=== PATIENT | female | born 1990 | race African-American/Black ===

== ENCOUNTER 2023-10-08 18:20 | Emergency (ER) | payer OTHER ==
[~2023-10-08] VITALS: Ht 170.2 cm; Wt 91.0 kg
[2023-10-08 18:24] VITALS: BP 141/76; PULSE 104; RESP 18; O2SAT 96
[2023-10-08] MEDS ORDERED: ACETAMINOPHEN 325MG TABLET PO PRN (18:30)
[2023-10-08 20:49] LABS: HEMOGLOBIN. 10.8 g/dL (12.0-16.0); MEAN CORPUSCULAR HEMOGLOBIN 28.6 pg (28.0-32.0); MEAN CORPUSCULAR HGB CONC 31.7 g/dL (31.0-37.0); MEAN CORPUSCULAR VOLUME 90.3 fL (81.0-99.0); MEAN PLATELET VOLUME 7.2 fl (7.4-10.4); PLATELET 410 x1000/uL (130-400); RED BLOOD CELL COUNT 3.77 mill/uL (4.2-5.4); RED CELL DISTRIBUTION WIDTH 15.6 % (11.6-14.6); WHITE BLOOD COUNT 4.8 x1000/uL (4.5-11.0)
[2023-10-08 20:50] LABS: INR 1.1; PROTHROMBIN TIME 11.5 sec (9.6-11.0)
[2023-10-08 20:54] LABS: DIFFERENTIAL COMMENT 1
[2023-10-08 21:31] LABS: PLATELET ESTIMATE SLIGHTLY INCREASED
[2023-10-08 21:32] LABS: ANISOCYTOSIS 1+; HYPOCHROMASIA 1+
[2023-10-08 21:41] LABS: ALANINE AMINOTRANSFERASE 23 IU/L (10-49); ALBUMIN 3.8 g/dL (3.2-4.8); ASPARTATE AMINOTRANSFERASE 17 IU/L (<34); BILIRUBIN TOTAL 0.3 mg/dL (0.1-1.0); CALCIUM 8.9 mg/dL (8.7-10.4); CARBON DIOXIDE 23 mEq/L (21-32); CHLORIDE 104 mEq/L (98-107); CREATININE 0.7 mg/dL (0.6-1.0); GLUCOSE 82 mg/dL (70-105); POTASSIUM 3.7 mEq/L (3.5-5.1); PROTEIN TOTAL 7.1 g/dL (6.0-8.3); SODIUM 135 mEq/L (136-145); UREA NITROGEN BLOOD 7 mg/dL (9-23)
[2023-10-09 01:33] VITALS: TEMP 100.6
[2023-10-09 03:03] LABS: CLARITY URINE CLOUDY (CLEAR); COLOR URINE YELLOW (YELLOW); GLUCOSE URINE NEGATIVE (NEGATIVE); KETONES URINE NEGATIVE (NEGATIVE); LEUKOCYTE ESTERASE URINE 1+ (NEGATIVE); NITRITE URINE NEGATIVE (NEGATIVE); OCCULT BLOOD URINE 3+ (NEGATIVE); PH URINE 6.5 (4.5-8.0); PROTEIN URINE TRACE (NEGATIVE); SPECIFIC GRAVITY URINE 1.015 (1.005-1.030)
[2023-10-09] MEDS ORDERED: CEPH500C2 MT (03:15)
[2023-10-09 03:16] LABS: SQUAMOUS EPITHELIAL CELL URINE 1+ /lpf (RARE/1+)
[2023-10-09 03:19] LABS: BACTERIA URINE TRACE
== END 2023-10-09 04:58 | disposition home or self-care (01) ==
LOC: ER 18:20
DX: O20.0 Threatened abortion (principal); O23.31 Infections of other parts of urinary tract in pregnancy, first trimester; Z3A.09 9 weeks gestation of pregnancy; Z20.822 Contact with and (suspected) exposure to COVID-19
CPT/HCPCS: 99284; 76830; 76856; 80053; 84702; 85025; 85610; 86850; 86900; 86901; 87040; 36415; 87426; 81003; 87804 ×2; C9803